=== PATIENT | male | born 1995 | race Caucasian/White ===

== ENCOUNTER 2022-10-26 01:20 | Emergency (ER) | payer OTHER ==
[~2022-10-26] VITALS: Ht 175.3 cm; Wt 88.5 kg
[2022-10-26 01:20] VITALS: BP 128/68
--- NOTE | 2022-10-26 01:20 | NUR ---
TO LOBBY A/W BED AMBULATORY
[2022-10-26 03:37] VITALS: BP 128/68
--- NOTE | 2022-10-26 03:37 | NUR ---
Patient discharged with v/s stable. Written and verbal after care instructions given and explained. Patient verbalized understanding. Ambulatory with steady gait. All questions addressed prior to discharge. Advised to follow up with PMD.
== END 2022-10-26 03:37 | disposition home or self-care (01) ==
LOC: MED 01:20
DX: F43.9 Reaction to severe stress, unspecified (principal)
CPT/HCPCS: 99283

== ENCOUNTER 2023-10-05 23:25 | Emergency (ER) | payer OTHER ==
[~2023-10-05] VITALS: Ht 172.7 cm; Wt 79.4 kg
[2023-10-05 23:25] VITALS: BP 158/109; PULSE 102; RESP 18; TEMP 97.7; O2SAT 100
[2023-10-06 00:46] LABS: BASOPHILS # (AUTO) 0.1 K/uL (0.00-0.22); BASOPHILS % (AUTO) 0.9 % (0.0-2.0); EOSINOPHILS # (AUTO) 0.3 K/uL (0-0.4); EOSINOPHILS % (AUTO) 2.3 % (0.0-4.0); HEMATOCRIT 39.2 % (36-52); HEMOGLOBIN 13.1 g/dL (12.0-18.0); LYMPHOCYTES # (AUTO) 2.6 K/uL (2.0-11.5); LYMPHOCYTES % (AUTO) 24.1 % (20.5-51.1); MEAN CORPUSCULAR HEMOGLOBIN 30 pg (27-31); MEAN CORPUSCULAR HGB CONC 34 g/dL (33-37); MEAN CORPUSCULAR VOLUME 89.4 fL (80-94); MONOCYTES # (AUTO) 1.2 K/uL (0.8-1.0); MONOCYTES % (AUTO) 11.3 % (1.7-9.3); NEUTROPHILS # (AUTO) 6.7 K/uL (1.8-7.7); NEUTROPHILS % (AUTO) 61.4 % (42.2-75.2); PLATELET COUNT (AUTO) 508 K/uL (140-450); RED BLOOD CELL COUNT(AUTO) 4.38 MIL/uL (4.20-6.10); RED CELL DISTRIBUTION WIDTH 14.7 % (11.6-13.7); WHITE BLOOD COUNT (AUTO) 10.9 K/uL (4.8-10.8)
[2023-10-06 00:56] LABS: ANION GAP 11.3 (8-16); CALCIUM 9.3 mg/dL (8.5-10.1); CARBON DIOXIDE 31.3 mmol/L (21-32); CREATININE 1.3 mg/dL (0.6-1.3); POTASSIUM 3.6 mmol/L (3.5-5.1)
[2023-10-06 01:00] LABS: ALANINE AMINOTRANSFERASE 22 U/L (12-78); ALBUMIN 3.2 g/dL (3.4-5.0); ALCOHOL, BLOOD < 3 mg/dL (<10); ALKALINE PHOSPHATASE 122 U/L (50-136); ASPARTATE AMINOTRANSFERASE 20 U/L (15-37); TOTAL BILIRUBIN 0.1 mg/dL (0.0-1.0); TOTAL PROTEIN, SERUM 8.8 g/dL (6.4-8.2)
[2023-10-06 01:13] LABS: SALICYLATE < 2.8 mg/dL (2.8-20.0)
[2023-10-06 01:33] LABS: AMPHETAMINE, URINE NEGATIVE ng/ml (NEG <=1000); BARBITURATE, URINE NEGATIVE ng/ml (NEG <=200); BENZODIAZEPINE, URINE NEGATIVE ng/mL (NEG <=200); CANNABINOID, URINE NEGATIVE ng/mL (NEG <=50); COCAINE, URINE NEGATIVE ng/mL (NEG <=300); OPIATE, URINE NEGATIVE ng/mL (NEG <=2000); PHENCYCLIDINE SCREEN,URINE NEGATIVE ng/mL (NEG <=25)
[2023-10-06 03:28] VITALS: O2SAT 100
[2023-10-06 06:19] VITALS: O2SAT 100
[2023-10-06 08:22] VITALS: O2SAT 100
[2023-10-06 09:23] VITALS: BP 148/78; PULSE 83; RESP 18; TEMP 98; O2SAT 100
== END 2023-10-06 09:23 | disposition home or self-care (01) ==
LOC: MED 23:25
DX: R45.851 Suicidal ideations (principal); I10 Essential (primary) hypertension; Z20.822 Contact with and (suspected) exposure to COVID-19; F31.9 Bipolar disorder, unspecified; F20.9 Schizophrenia, unspecified; F41.9 Anxiety disorder, unspecified
CPT/HCPCS: 36415; 80048; 80076; 80305; 85025; 87426; 93005; 99285; G0480; G0482